=== PATIENT | male | born 1965 | race Caucasian/White ===

== ENCOUNTER 2018-10-17 05:06 | Emergency (ER) | payer MEDICAID ==
[~2018-10-17] VITALS: Ht 175.3 cm; Wt 117.9 kg
[2018-10-17 05:16] VITALS: BP 184/97
[2018-10-17] MEDS: LIDOCAINE 1% HCL (LOCAL ANESTH.) INJ 20ML MDV ONE (07:17)
[2018-10-17] MEDS: cefTRIAXone SOD 1,000 MG VL IM ONE (07:17)
== END 2018-10-17 06:43 | disposition home or self-care (01) ==
LOC: ER 05:08
DX: J02.9 Acute pharyngitis, unspecified (principal); E78.5 Hyperlipidemia, unspecified; I10 Essential (primary) hypertension
CPT/HCPCS: 96372; 99283; J0696; J2001